=== PATIENT | male | born 2000 | race African-American/Black ===

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

== ENCOUNTER → 2025-03-11 | Outpatient (CLI) | payer OTHER | END | disposition home or self-care (01) | LOC: US 13:13 | PROVIDERS: ATTEND Internal Medicine | DX: E04.2 Nontoxic multinodular goiter (principal) ==